=== PATIENT | male | born 2005 | race African-American/Black ===

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

== ENCOUNTER 2025-02-13 20:31 | Emergency (ER) | payer OTHER | END 2025-02-13 20:48 | disposition home or self-care (01) | LOC: CSHERS 20:31 | DX: B00.1 Herpesviral vesicular dermatitis (principal) | CPT/HCPCS: 99282 ==

== ENCOUNTER 2025-05-09 18:18 | Emergency (ER) | payer OTHER ==
[2025-05-09] MEDS ORDERED: Metoclopramide HCl 10 MG (2 mL) VIAL ONE (19:07)
== END 2025-05-09 19:19 | disposition home or self-care (01) ==
LOC: CSHERS 18:18
DX: G43.909 Migraine, unspecified, not intractable, without status migrainosus (principal)
CPT/HCPCS: 96372; 99283; J2765